=== PATIENT | female | born 1955 | race Caucasian/White ===

== ENCOUNTER 2017-11-14 14:03 | Inpatient (IN) | payer OTHER ==
[~2017-11-14] VITALS: Ht 152.4 cm; Wt 54.5 kg
[2017-11-14 14:14] LABS: GLUCOSE,POINT OF CARE 154 MG/DL (70-110)
[2017-11-14] MEDS ORDERED: MELO-107 PO (14:31)
[2017-11-14] MEDS ORDERED: ASPI81 PO (14:31)
[2017-11-14] MEDS ORDERED: ALEN70TA48 PO (14:31)
[2017-11-14] MEDS ORDERED: PRED5 PO (14:31)
[2017-11-14] MEDS ORDERED: VENL-53 PO (14:31)
[2017-11-14] MEDS ORDERED: SIMV-260 PO (14:31)
[2017-11-14] MEDS ORDERED: LOSA50TA25 PO (14:31)
[2017-11-14] MEDS ORDERED: CHOL50004 PO (14:31)
[2017-11-14] MEDS ORDERED: SALM1CAP PO (14:31)
[2017-11-14] MEDS ORDERED: OMEP20 PO (14:31)
[2017-11-14] MEDS ORDERED: GARL1000 PO (14:31)
[2017-11-14] MEDS ORDERED: NIFE10 PO (14:31)
[2017-11-14] MEDS ORDERED: FISH1CAP27 PO (14:31)
[2017-11-14] MEDS ORDERED: GLUC100019 PO (14:31)
[2017-11-14] MEDS ORDERED: CYAN500 PO (14:31)
[2017-11-14] MEDS ORDERED: NIFE30TA5 PO (14:39)
[2017-11-14 14:41] LABS: BASOPHILS % (AUTO) 0.5 % (0.0-2.0); EOSINOPHILS % (AUTO) 0.2 % (1.0-6.0); HEMATOCRIT 35.8 % (36-46); LYMPHOCYTES # (AUTO) 1.4 K/uL (1.0-4.8); LYMPHOCYTES % (AUTO) 14.4 % (22.0-44.0); MEAN CORPUSCULAR HEMOGLOBIN 27.5 pg (26.0-34.0); MEAN CORPUSCULAR HGB CONC 33.5 G/dL (31.0-37.0); MEAN CORPUSCULAR VOLUME 82 fL (80-100); MONOCYTES # (AUTO) 0.7 K/uL (0.1-1.0); MONOCYTES % (AUTO) 7.1 % (2.0-9.0); NEUTROPHILS # (AUTO) 7.5 K/uL (1.8-7.7); NEUTROPHILS % (AUTO) 77.8 % (40.0-70.0); PLATELET COUNT (AUTO) 244 K/uL (150-450); RED BLOOD CELL COUNT(AUTO) 4.37 MIL/uL (4.00-5.20); RED CELL DISTRIBUTION WIDTH 14.4 % (11.5-14.5)
[2017-11-14] MEDS ORDERED: LORazepam 1 MG TABLET PO ONE (14:45)
[2017-11-14 14:49] LABS: ANION GAP 11 mmol/L (8-16); CALCIUM, TOTAL 8.7 mg/dL (8.8-10.5); CARBON DIOXIDE 26 mmol/L (22-29); CHLORIDE 102 mmol/L (98-107); CREATININE 1.06 mg/dL (0.60-1.30); GLOMERULAR FILTR. RATE CALC 52 mL/min (>60); GLUCOSE,RANDOM 131 mg/dL (70-110); POTASSIUM 3.3 mmol/L (3.5-5.1); SODIUM SERUM 139 mmol/L (136-145); UREA NITROGEN, BLOOD 11 mg/dL (7-18)
[2017-11-14 15:03] LABS: ALANINE AMINOTRANSFERASE 32 U/L (12-78); ALBUMIN 3.4 g/dL (3.4-5.0); ALKALINE PHOSPHATASE 60 U/L (46-116); ASPARTATE AMINOTRANSFERASE 18 U/L (15-37); BILIRUBIN,TOTAL 0.3 mg/dL (0.1-1.0); LIPASE 265 U/L (73-393); THYROID STIMULATING HORMONE 1.76 uIU/mL (0.36-3.74); TOTAL PROTEIN, SERUM 7.2 g/dL (6.4-8.2)
[2017-11-14] MEDS ORDERED: POTASSIUM CHL 10 MEQ/WATER 50 ML IV PRN (16:00)
[2017-11-14] MEDS ORDERED: LORazepam 2 MG/ML VIAL IVP PRN (16:00)
[2017-11-14] MEDS ORDERED: MAGNESIUM HYDROXIDE SUSPENSION 30 ML UDCUP PO PRN (16:00)
[2017-11-14] MEDS ORDERED: POTASSIUM CHLORIDE 20 MEQ ER TABLET PO PRN (16:00)
[2017-11-14] MEDS ORDERED: ACETAMINOPHEN 325 MG TABLET PO PRN (16:00)
[2017-11-14] MEDS: ASPIRIN 81 MG CHEWABLE TABLET PO SCH (16:09)
[2017-11-14 16:14] LABS: APPEARANCE,URINE CLEAR (CLEAR); BILIRUBIN,URINE NEGATIVE (NEGATIVE); GLUCOSE, URINE (UA) NEGATIVE (NEGATIVE); KETONES,URINE NEGATIVE (NEGATIVE); LEUKOCYTE ESTERASE ,URINE NEGATIVE (NEGATIVE); NITRATE,URINE NEGATIVE (NEGATIVE); OCCULT BLOOD,URINE NEGATIVE (NEGATIVE); PH,URINE 6.5 (5.0-8.0); PROTEIN,URINE NEGATIVE (NEGATIVE); UROBILINOGEN,URINE 0.2 mg/dL (<=1.0)
[2017-11-14] MEDS: LOSARTAN POTASSIUM 50 MG TABLET PO SCH (16:16)
[2017-11-14 16:17] LABS: AMPHET/METH SCREEN,URINE NEGATIVE (NEGATIVE); BARBITURATE SCREEN, URINE NEGATIVE (NEGATIVE); BENZODIAZEPINES SCREEN,URINE NEGATIVE (NEGATIVE); CANNABINOID SCREEN,URINE NEGATIVE (NEGATIVE); COCAINE SCREEN,URINE NEGATIVE (NEGATIVE); METHADONE SCREEN, URINE NEGATIVE (NEGATIVE); OPIATE SCREEN,URINE NEGATIVE (NEGATIVE)
[2017-11-14 16:20] LABS: PHENCYCLIDINE SCREEN,URINE NEGATIVE (NEGATIVE)
[2017-11-14] MEDS ORDERED: POTASSIUM CHLORIDE 20 MEQ ER TABLET PO ONE (16:45)
[2017-11-14] MEDS ORDERED: ASPIRIN 81 MG CHEWABLE TABLET PO ONE (16:45)
[2017-11-14 21:09] VITALS: BP 123/58
[2017-11-14] MEDS: DOCUSATE SODIUM 100 MG CAPSULE PO SCH (21:23)
[2017-11-14 23:51] VITALS: BP 120/59
[2017-11-15 04:14] VITALS: BP 131/79
[2017-11-15 07:20] VITALS: BP 139/72
[2017-11-15] MEDS: PANTOPRAZOLE SODIUM 40 MG DR TABLET PO SCH (08:36)
[2017-11-15] MEDS: ASPIRIN 81 MG CHEWABLE TABLET PO SCH (08:36)
[2017-11-15] MEDS: DOCUSATE SODIUM 100 MG CAPSULE PO SCH ×2 (08:36→19:59)
[2017-11-15] MEDS: LOSARTAN POTASSIUM 50 MG TABLET PO SCH (08:37)
[2017-11-15 11:24] VITALS: BP 127/59
[2017-11-15 15:26] VITALS: BP 134/55
[2017-11-15 19:22] VITALS: BP 131/69
[2017-11-15 23:51] VITALS: BP 131/55
[2017-11-16 04:23] VITALS: BP 141/68
[2017-11-16 07:17] VITALS: BP 149/70
[2017-11-16] MEDS: ASPIRIN 81 MG CHEWABLE TABLET PO SCH (08:21)
[2017-11-16] MEDS: PANTOPRAZOLE SODIUM 40 MG DR TABLET PO SCH (08:21)
[2017-11-16] MEDS: DOCUSATE SODIUM 100 MG CAPSULE PO SCH (08:21)
[2017-11-16] MEDS: LOSARTAN POTASSIUM 50 MG TABLET PO SCH (08:21)
[2017-11-16 11:19] VITALS: BP 129/56
[2017-11-16 15:07] VITALS: BP 137/48
== END 2017-11-16 18:05 | disposition home or self-care (01) | DRG 53 ==
LOC: EMS 14:04 → 5N 19:30
PROVIDERS: ADMIT Internal Medicine; ATTEND Internal Medicine
DX: R56.9 Unspecified convulsions (principal); E78.00 Pure hypercholesterolemia, unspecified; I10 Essential (primary) hypertension; J44.9 Chronic obstructive pulmonary disease, unspecified; K21.9 Gastro-esophageal reflux disease without esophagitis; E78.5 Hyperlipidemia, unspecified; M19.90 Unspecified osteoarthritis, unspecified site; F17.210 Nicotine dependence, cigarettes, uncomplicated; Z90.710 Acquired absence of both cervix and uterus
CPT/HCPCS: 70450; 70551; 84132; 84443; 93005; 95816; 99285; G0480